=== PATIENT | male | born 1980 | race Caucasian/White ===

== ENCOUNTER 2022-04-16 13:31 | Emergency (ER) | payer OTHER, SELFPAY ==
[2022-04-16] VITALS (7 sets, daily range): BP systolic 132–134; BP diastolic 85–93; PULSE 68–110; RESP 12–19; TEMP 36.8; O2SAT 99–100
--- NOTE | 2022-04-16 13:47 | ED.GENADULT ---
HPI - General Adult General Chief complaint: Environmental Exposure Stated complaint: dehydrated, cramping, dizziness Time Seen by Provider: 04/16/22 13:42 Source: patient Mode of arrival: ambulatory Limitations: no limitations History of Present Illness HPI narrative: 41-year-old male presents today with complaints of being dehydrated and intermittent dizziness with cramping to the lower extremities for that started this morning. 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 Patient states he did not feel great yesterday hydrated after he got off work. Urinated this morning went to work for couple hours and then felt worse. Upon arrival patient tachycardic, temperature within normal limits, alert and oriented x3, without complaints upon assessment. Related Data Home Medications Medication Instructions Recorded Confirmed albuterol sulfate 90 mcg/actuation 2 puff inhalation Q4H PRN 08/18/19 aerosol inhaler (ProAir HFA) Allergies Allergy/AdvReac Type Severity Reaction Status Date / Time No Known Allergies Allergy Unknown Verified 04/16/22 13:41 Review of Systems Review of Systems: CONSTITUTIONAL: Denies fever, chills, or sweats. EYES: Denies visual changes, redness, or discharge. ENT: Denies rhinorrhea, congestion, sore throat, or otalgia. CARDIOVASCULAR: Denies chest pain, palpitations, or edema. RESPIRATORY: Denies cough or dyspnea. GASTROINTESTINAL: Denies abdominal pain, nausea, vomiting, or diarrhea. GENITOURINARY: Denies dysuria or hematuria. SKIN: Denies rash or itching. MUSCULOSKELETAL: Cramping to lower legs. Denies back pain, joint pain, or myalgia. NEUROLOGIC: Intermittent dizziness. Denies headache, numbness, or weakness. PSYCHIATRIC: Denies anxiety or depression. [facility] Social History Social History Smoking status: Heavy tobacco smoker Alcohol intake: current Exam Narrative: GENERAL: Well-appearing, well-nourished, and in no acute distress. HEAD: Normocephalic, atraumatic. EYES: PERRLA and EOMI. ENT: Nares clear, no rhinorrhea or epistaxis. Mucous membranes moist. Oropharynx without tonsillar hypertrophy exudate or other lesions. NECK: Supple. No adenopathy or masses. No carotid bruits or JVD CHEST: Clear to auscultation. No respiratory distress. No wheezes rales or rhonchi HEART: Regular rate and rhythm. No murmur heard. Normal peripheral pulses. ABDOMEN: Soft, nontender, nondistended, normal active bowel sounds. EXTREMITIES: Normal range of motion. No edema. SKIN: Warm, dry, no rash. NEURO: No focal deficits. Alert and oriented x3. PSYCH: Normal mood and affect. Course Course Emergency Course: Patient with improvement after 2 L of normal saline. Patient denies dizziness able to walk with a steady gait. Patient to be discharged home with plan follow-up with primary if need be. Vital Signs Vital signs: Vital Signs Temperature 36.8 C 04/16/22 13:33 Pulse Rate 110 H 04/16/22 13:33 Respiratory Rate 16 04/16/22 13:33 Blood Pressure 134/93 H 04/16/22 13:33 Pulse Oximetry 100 04/16/22 13:33 Oxygen Delivery Room Air 04/16/22 13:33 Temperature 36.8 C 04/16/22 13:33 Pulse Rate 110 H 04/16/22 13:33 Respiratory Rate 16 04/16/22 13:33 Blood Pressure 134/93 H 04/16/22 13:33 Pulse Oximetry 100 04/16/22 13:33 Oxygen Delivery Room Air 04/16/22 13:33 Medical Decision Making MDM Narrative Medical decision making narrative: 41-year-old male HPI as noted. CBC CMP and urine to be ordered. IV fluids for rehydration. CBC CMP and urine without concerning findings. Patient with improvement after IV fluids. Will discharge diagnosis dehydration. Differential Diagnosis Differential Diagnosis: Dehydration, hypokalemia, heat exposure, heat exhaustion, Vital Signs Vital Signs: Vital Signs Temperature 36.8 C 04/16/22 13:33 Pulse Rate 110 H 04/16/22 13:33 Respiratory Rate
[2022-04-16] MEDS: SODIUM CHLORIDE 0.9% IV 1,000 ML 999 ML IV CONT ×2 (13:56→15:17)
[2022-04-16 14:01] LABS: Basophils Absolute Auto 0.1 K/mm3 (0.0-0.1); Basophils Percent Auto 1.2 % (0.2-1.2); Eosinophils Absolute Auto 0.4 K/mm3 (0-0.3); Eosinophils Percent Auto 3.9 % (0-4.4); Immature Granulocyte Absolute 0.02 K/mm3 (0.00-0.031); Immature Granulocyte Percent A 0.2 % (0-0.5); Lymphocytes Absolute Auto 2.77 K/mm3 (0.9-3.2); Lymphocytes Percent Auto 26.8 % (18.3-44.2); Mean Corpuscular HGB Conc 33.3 g/dl (32-36); Mean Corpuscular Hemoglobin 31.8 pg (26-34); Mean Corpuscular Volume 95.4 fl (80-100); Mean Platelet Volume 9.7 fl (7.4-10.4); Monocytes Absolute Auto 0.9 K/mm3 (0.1-0.6); Monocytes Percent Auto 8.8 % (2.6-8.5); Neutrophils Absolute Auto 6.1 K/mm3 (1.3-6.7); Neutrophils Percent Auto 59.1 % (45.5-73.1); Platelet Count Result 387 k/mm3 (150-375); Red Blood Count 5.66 M/mm3 (4.6-6.20); Red Cell Distribution Width 13.2 % (11.5-14.5); White Blood Count 10.3 K/mm3 (4.5-10.0)
[2022-04-16 15:11] LABS: Appearance Urine Clear (Clear); Bilirubin Urine Negative (Negative); Color Urine Yellow (Yellow); Glucose Urine UA Negative (Negative); Ketones Urine Negative (Negative); Leukocyte Esterase Ur Negative LEU/UL (Negative); Nitrate Urine Negative (Negative); Protein Urine Negative (Negative); Specific Grav Ur >= 1.030 (1.001-1.035); Urobilinogen Urine 0.2 mg/dL (<2.0)
[2022-04-16 15:20] LABS: Mucus Urine Rare /lpf; WBC Urine 0-3 /hpf
[2022-04-16 15:21] LABS: Alanine Aminotransferase 29 U/L (6-50); Albumin Level 4.3 g/dL (3.5-5.1); Alkaline Phosphatase 69 U/L (38-126); Anion Gap 7 mmol/L (8-16); Aspartate Amino Transferase 27 U/L (17-59); Bilirubin,Total 0.7 mg/dL (0.2-1.3); Blood Urea Nitrogen 17 mg/dL (9-20); Calcium 9.1 mg/dL (8.4-10.2); Carbon Dioxide 27 mmol/L (22-30); Chloride 102 mmol/L (98-107); Estimated CRCL calculation 84 ml/min; Estimated Glomerular Filt Rate > 60; Glucose 89 mg/dL (65-110); Sodium 136 mmol/L (137-145)
[2022-04-16 15:21] LABS: Add Urine Microscopic? YES; Blood Urine Trace-Intact (Negative)
== END 2022-04-16 16:25 | disposition home or self-care (01) ==
PROVIDERS: Emergency Provider Nurse Practitioner Family; PCP Internal Medicine
DX: E86.0 Dehydration (principal)
CPT/HCPCS: 36415; 80053; 81001; 85025; 96360; 96361; 99283; J7030

== ENCOUNTER 2022-06-04 15:32 | Emergency (ER) | payer OTHER, SELFPAY ==
--- NOTE | ~2022-06-04 | XR_ITS ---
EXAMINATION: XR chest 2V DATE: 06/04/2022 16:01 INDICATION: Midsternal chest pain TECHNIQUE: PA and lateral views of the chest are obtained. COMPARISON: 08/15/2012 FINDINGS: The lungs are free of acute opacities. No pleural effusion or pneumothorax. The cardiomedia stinal silhouette is normal. There is mild thoracic spondylosis. IMPRESSION: 1. No acute cardiopulmonary abnormality. Reviewed, dictated and finalized at location A.
[2022-06-04 15:37] VITALS: BP 120/87; PULSE 98; RESP 16; TEMP 37; O2SAT 100
--- NOTE | 2022-06-04 15:44 | ECG_ITS ---
Measurements Intervals [place] Rate: 89 P: 74 [place]: 155 QRS: 37 QRSD: 81 T: 73 QT: 349 QTc: 427 Interpretive Statements SINUS RHYTHM CANNOT RULE OUT SEPTAL INFARCT, AGE INDETERMINATE BORDERLINE T WAVE ABNORMALITY- HIGH LATERAL LEADS ABNORMAL ECG NO PREVIOUS ECG AVAILABLE FOR COMPARISON Electronically Signed On 06-04-2022 15:55:31 CDT by Vitaliy Hansen D.O.
[2022-06-04 15:54] LABS: Basophils Absolute Auto 0.1 K/mm3 (0.0-0.1); Basophils Percent Auto 0.8 % (0.2-1.2); Eosinophils Absolute Auto 0.2 K/mm3 (0-0.3); Eosinophils Percent Auto 3.4 % (0-4.4); Hematocrit 51.3 % (42.0-52.0); Hemoglobin 17.3 g/dL (14.0-18.0); Immature Granulocyte Absolute 0.01 K/mm3 (0.00-0.031); Immature Granulocyte Percent A 0.2 % (0-0.5); Lymphocytes Percent Auto 30.4 % (18.3-44.2); Mean Corpuscular HGB Conc 33.7 g/dl (32-36); Mean Platelet Volume 9.8 fl (7.4-10.4); Monocytes Absolute Auto 0.6 K/mm3 (0.1-0.6); Monocytes Percent Auto 10.2 % (2.6-8.5); Neutrophils Absolute Auto 3.4 K/mm3 (1.3-6.7); Platelet Count Result 306 k/mm3 (150-375); Red Cell Distribution Width 12.4 % (11.5-14.5); White Blood Count 6.3 K/mm3 (4.5-10.0)
[2022-06-04 16:08] LABS: Alanine Aminotransferase 54 U/L (6-50); Albumin Level 4.7 g/dL (3.5-5.1); Alkaline Phosphatase 76 U/L (38-126); Anion Gap 14 mmol/L (8-16); Aspartate Amino Transferase 44 U/L (17-59); Bilirubin,Total 0.4 mg/dL (0.2-1.3); Blood Urea Nitrogen 10 mg/dL (9-20); Calcium 8.8 mg/dL (8.4-10.2); Carbon Dioxide 27 mmol/L (22-30); Chloride 100 mmol/L (98-107); Estimated CRCL calculation 97 ml/min; Estimated Glomerular Filt Rate > 60; Glucose 131 mg/dL (65-110); Lipase 96 U/L (23-300); Potassium 4.3 mmol/L (3.4-5.0); Sodium 141 mmol/L (137-145)
[2022-06-04 16:17] LABS: INR 0.9; Partial Thromboplastin Time 27.5 SECONDS (22.3-36.8); Prothrombin Time 11.9 Seconds (11.1-14.7)
[2022-06-04 16:19] LABS: Troponin I < 0.012 ng/mL (0.000-0.034)
[2022-06-04 16:31] LABS: Influenza A QL RT-PCR Negative (Negative); Influenza B QL RT-PCR Negative (Negative); SARS-CoV-2 RNA PCR Positive
--- NOTE | 2022-06-04 17:25 | PC.NURSE ---
Patient approached nurses station and reported he was going to leave and didn't want to wait to be seen anymore. Patient alert and ambulatory when leaving the ED.
== END 2022-06-04 17:25 | disposition left against medical advice (07) ==
LOC: ANHED 18:45
PROVIDERS: Emergency Provider Emergency Medicine; PCP Internal Medicine
DX: R07.9 Chest pain, unspecified (principal); U07.1 COVID-19
CPT/HCPCS: 36415; 71046; 80053; 83690; 84484; 85025; 85610; 85730; 87502; 93005; 99199; C9803; U0003; U0005

== ENCOUNTER 2025-04-22 03:36 | Emergency (ER) | payer OTHER, SELFPAY ==
--- OUTSIDE RECORDS SUMMARY | 2025-04-22 03:38 | XMS_ITS | Continuity of Care Document ---
Author Organization [facility] Address [address] [place] [address] Phone Care Team Providers Care Health Sciences Manager Name Role Phone Russell PT,MPT,ATC, Red Unavailable Unavai lable Procedures Procedure Date Therapeutic Exercise Therapeutic Exercise Therapeutic Activities Neuromuscular Re-Ed Therapeutic Exercise Therapeutic Activities Neuromuscular Re-Ed Manual Therapy Hot or Cold Pack Therapeutic Exercise Therapeutic Activities Neuromuscular Re-Ed Manual Therapy Hot or Cold Pack Therapeutic Exercise Neuromuscular Re-Ed Manual Therapy Hot or Cold Pack Therapeutic Exercise Neuromuscular Re-Ed Manual Therapy Hot or Cold Pack Therapeutic Exercise Neuromuscular Re-Ed Manual Therapy Hot or Cold Pack PT Evaluation Moderate Complexity Therapeutic Exercise Manual Therapy Advance Directives Directive Yes / No Effective Date File Name No Information Encounters Encounter Description Practice Location Reason(s) For Visit Diagnoses Date Provider Providers Copied on Encounter [facility], [address], [place], [place], [id number], [place] tel:[phone] [place] No Information 7 Russell Bhardwaj , [place], [place]. [facility] [place] [address], [id number], tel:[phone] [place] No Information 7 [place], [place], [place]. [facility] [place] [address], [id number], tel:[phone] [place] No Information 7 Niederhoffer Zohra. . [facility], [id number], tel:[phone] [place] No Information 7 Niederhoffer Zohra. . [facility], [id number], tel:[phone] [place] No Information 7 Niederhoffer Zohra. . [facility], [id number], tel:[phone] [place] No Information 7 Niederhoffer Zohra. . [facility], [id number], tel:[phone] [place] No Information 7 Muehl Evelina. [address], [address], [place], [facility], . tel:[phone] [facility], [id number], tel:[phone] [place] Low back painStiffness of unspecified joint, not elsewhere classifiedOth symptoms and signs involving the musculoskelet al systemUnspeci fied abnormalities of gait and mobility 7 Muehl Evelina. [address], [address], [place], [place], [facility] [place], [place]. tel:[phone] Family History Family Member Type Diagnosis Age At Onset No Information Payers Payer name Insurance type Covered libertarian ID Authoriza tilaura(s) [facility] [id number] Social History Type Description Quantity Date Captured Comments Sex Male Smoking Status No Information Chief Complaint And Reason For Visit No Information Reason For Referral Reason For Referral No Information History Of Present Illness Encounter Date Complaint History Of Prese nt Illness No Information Functional Status Date Functional Assessmen t No Information Instructions Date Instruction Additional Infor mation No Information Assessments Type Assessment Date No Information Patient Care Teams Name Effective Dates (start - stop) Status Members No Information
[2025-04-22 03:47] VITALS: BP 134/92; PULSE 56; RESP 16; TEMP 36.6; O2SAT 98
--- NOTE | 2025-04-22 05:16 | ED.SKABFB ---
HPI - Skin/Abscess/Foreign Bdy General Chief complaint: Skin/Abscess/Foreign Body Stated complaint: rash Time Seen by Provider: 04/22/25 04:34 Source: patient Mode of arrival: ambulatory Limitations: no limitations History of Present Illness HPI narrative: Patient presents with report of a rash on his right leg that is painful. States it is similar to right arm lesions he had experienced earlier in the week. Believes he has poison antonietta. Patient applying various medications. Stated the arm pain getting better but leg not improving. Noted a pain of 6/10 in severity and described as heavy pressure in triage. States that the pruritus resolved. Related Data Home Medications ?Medication ?Instructions ?Recorded ?Confirmed ?Last Taken ?Type albuterol sulfate 90 mcg/actuation 2 puff inhalation Q4H PRN 08/18/19 Unknown History aerosol inhaler (ProAir HFA) Congestion Allergies Allergy/AdvReac Type Severity Reaction Status Date / Time No Known Allergies Allergy Unknown Verified 04/22/25 03:50 [facility] Social History Social History Smoking status: Heavy tobacco smoker Alcohol intake: current Exam Narrative: GENERAL: Well-appearing, well-nourished, and in no acute distress. Patient resting comfortably while awaiting evaluation, heard snoring. Does not awaken to verbal stimulus but does arouse to physical stimulus. HEAD: Normocephalic, atraumatic. EYES: Non injected, non icteric ENT: Nares clear, no rhinorrhea or epistaxis. Gross auditory acuity intact. NECK: Supple. No meningismus. CHEST: Speaking in full sentences. No respiratory distress. HEART: Bradycardic rate and rhythm. . ABDOMEN: Soft, nondistended. EXTREMITIES: Normal range of motion. No lower extremity edema. SKIN: Warm, dry. Well healing lesions on right arm. Right leg with scattered lesions consistent with Urashiol-induced dermatitis. No weeping vessicles/blisters but there are scattered scabs. No purpura or petechiae. Total BSA of lesions <5%%. NEURO: No focal deficits. Alert and oriented. Answering questions. Following commands. Normal speech without aphasia or dysarthria. PSYCH: Congruent mood and affect. Course Vital Signs Vital signs: Vital Signs Temperature 97.8 F 04/22/25 03:47 Pulse Rate 56 L 04/22/25 03:47 Respiratory Rate 16 04/22/25 03:47 Blood Pressure 134/92 H 04/22/25 03:47 Pulse Oximetry 98 04/22/25 03:47 Oxygen Delivery Room Air 04/22/25 03:47 Temperature 97.8 F 04/22/25 03:47 Pulse Rate 56 L 04/22/25 03:47 Respiratory Rate 16 04/22/25 03:47 Blood Pressure 134/92 H 04/22/25 03:47 Pulse Oximetry 98 04/22/25 03:47 Oxygen Delivery Room Air 04/22/25 03:47 MDM - Skin/Abscess/Foreign Bdy MDM Narrative Medical decision making narrative: 44-year-old male presents with concern for poison antonietta. In the emergency department he is afebrile with vital signs notable for mild bradycardia and slightly elevated blood pressure, otherwise acceptable. On physical exam does have a rash consistent with Urashiol induced dermatitis. Advised on symptom management and prescribed combination of diphenhydramine, cortisone cream, and calamine lotion. Body surface area otherwise small so no role for PO steroids at this time. Otherwise stable for DC and advised follow up with a PCP. Does not appear to have one so referral contact information given. Provided a work note. Differential Diagnosis Differential diagnosis: Likely viral exanthem, urticaria, herpes zoster, allergic reaction to drug, cellulitis, eczema, insect bites, impetigo, contact dermatitis and other (poison antonietta/sumac) Discharge Plan Discharge Clinical Impression: Poison antonietta dermatitis Patient Disposition: Home Condition: Stable Instructions: Antibiotic Form, Poison Antonietta (ED), Cold Compress or Soak (ED) Additional Instructions: Soothing measure options include oatmeal baths, cool wet compresses, ice packs, topical menthol and phenol (calamine lotion) compounds. You can take the prescribed oral antihistamine to help you sleep at night if the itching return or the pain is keeping you from sleeping. I am also prescribing a high potency topical corticosteroid to help. Follow-up with your primary care physician. If you do not have 1 the name of a doctor is listed below. Return to the emergency department with any new or worsening symptoms. Patient Language: Yoruba Prescriptions: New Calamine Clear 1-0.1 % lotion 1 applic topical TID PRN (Reason: skin irritation) Qty: 177 0RF diphenhydramine HCl [Allergy (diphenhydramine)] 25 mg capsule 25 mg PO TID PRN (Reason: itching) Qty: 16 0RF clobetasol 0.05 % cream 1 applic topical BID 14 Days Qty: 30 0RF No Action albuterol sulfate [ProAir HFA] 90 mcg/actuation HFA aerosol inhaler 2 puff INHALATION Q4H PRN (Reason: Congestion) Follow-up/Referrals: Karthik Espana MD [Physician] - UNKNOWN,DOCTOR [Primary Care Provider] - Stand Alone Forms: Work/School Release IP Time of Disposition: 05:27
--- OUTSIDE RECORDS SUMMARY | 2025-04-22 05:30 | XMS_ITS | Continuity of Care Document ---
Author Organization [facility] Address [address] [place] [address] Phone Care Team Providers Care Ambulance Mechanic Name Role Phone Russell PT,MPT,ATC, Red Unavailable [...] Diagnoses Date Provider Providers Copied on Encounter [facility], [address], [place], [place], [id number], [place] tel:[phone] [place] No Information 7 Russell Bhardwaj , [place], [place]. [facility] [place] [address], [id number], tel:[phone] [place] No Information 7 [place], [place], [place]. [facility] [place] [address], [id number], tel:[phone] [place] No Information 7 Niederhoffer Zohra. . [facility], [id number], tel:[phone] [place] No Information 7 Niederhoffer Zohra. . [facility], [id number], tel:[phone] [place] No Information 7 Niederhoffer Zohra. . [facility], [id number], tel:[phone] [place] No Information 7 Niederhoffer Zohra. . [facility], [id number], tel:[phone] [place] No Information 7 Muehl Evelina. [address], [place], [facility], . tel:[phone] [facility], [id number], tel:[phone] [place] Low back painStiffness of unspecified joint, not elsewhere classifiedOth symptoms and signs involving the musculoskelet al systemUnspeci fied abnormalities of gait and mobility 7 Muehl Evelina. [address] [address], [place], [place], [facility], [place]. tel:[phone] Family History Family Member Type Diagnosis Age At Onset No Information Payers Payer name Insurance type Covered green party ID Authoriza tilaura(s) [facility] [id number] Social History Type Description Quantity Date Captured [...]
== END 2025-04-22 05:46 | disposition home or self-care (01) ==
LOC: ANHED 05:28
PROVIDERS: Emergency Provider Student in an Organized Health Care Education/Training Program
DX: L23.7 Allergic contact dermatitis due to plants, except food (principal)
CPT/HCPCS: 99283